=== PATIENT | male | born 1950 | race Caucasian/White ===

== ENCOUNTER 2020-03-23 20:30 | Inpatient (IN) | payer MEDICARE ==
--- NOTE | 2020-03-23 20:39 | ERPHSYRPT ---
- History of Present Illness Time Seen by Provider: 03/23/20 20:39 Source: patient Exam Limitations: no limitations Physician History: This is a 69-year-old diabetic white male who is right-handed and [place] the [place] in [place] 2 days ago. He fell hitting his left ribs as well as his left arm. The patient presents with bruising and swelling swelling of the left upper extremity from the left humerus down to his wrist on the left hand. It appeared as though the major injury was in the area of the dorsal aspect of his left elbow. It hurts to flex and extend at the elbow. Patient denies head injury. Patient has not had any fever. There is blistering that was present and the blistering worsened today and patient became concerned. Occurred: days ago Method of Injury: fell Severity of Pain-Max: moderate Severity of Pain-Current: moderate Extremities Pain Location: arm: left, elbow: left, forearm: left, wrist: left Modifying Factors: Improves With: movement Associated Symptoms: chest discomfort (Left ribs), No chills, No chest pain, No fever, No short of breath Allergies/Adverse Reactions: No Known Drug Allergies Allergy (Verified 03/23/20 21:21) Travel Risk - International Travel Have you traveled outside of the country in past 3 weeks: No - Coronavirus Screening Are you exhibiting any of the following symptoms?: No Close contact with a COVID-19 positive Pt in past 14-21 Days: No - Review of Systems Constitutional: No Symptoms Eyes: No Symptoms Ears, Nose, & Throat: No Symptoms Respiratory: No Symptoms Cardiac: No Symptoms Abdominal/Gastrointestinal: No Symptoms Genitourinary Symptoms: No Symptoms Musculoskeletal: Fall, Injury (Left humerus left elbow left forearm), Other (Oozing and swelling with blistering present) Skin: Other (See above) Neurological: No Symptoms Psychological: No Symptoms Endocrine: No Symptoms Hematologic/Lymphatic: No Symptoms Immunological/Allergic: No Symptoms All Other Systems: Reviewed and Negative - Past Medical History Pertinent Past Medical History: Yes Neurological History: No Pertinent History ENT History: No Pertinent History Cardiac History: No Pertinent History Respiratory History: No Pertinent History Endocrine Medical History: Diabetes Type II Musculoskeletal History: No Pertinent History GI Medical History: No Pertinent History History: No Pertinent History Psycho-Social History: No Pertinent History Male Reproductive Disorders: No Pertinent History - Past Surgical History Neuro Surgical History: No Pertinent History Cardiac: No Pertinent History Respiratory: No Pertinent History Gastrointestinal: No Pertinent History Genitourinary: No Pertinent History Musculoskeletal: No Pertinent History Male Surgical History: No Pertinent History - Nursing Vital Signs Nursing Vital Signs: Initial Vital Signs Temperature 98.5 F 03/23/20 20:55 Pulse Rate 96 H 03/23/20 20:55 Respiratory Rate 18 03/23/20 20:55 Blood Pressure 115/78 03/23/20 20:55 O2 Sat by Pulse Oximetry 97 03/23/20 20:55 Pain Scale Pain Intensity 6 - Physical Exam General Appearance: no apparent distress, alert, anxiety Eyes, Ears, Nose, Throat Exam: normal ENT inspection, moist mucous membranes Neck Exam: normal inspection, non-tender, supple, full range of motion Cardiovascular/Respiratory Exam: normal breath sounds, regular rate/rhythm, heart sounds normal, no respiratory distress, rib tenderness (Left side), No subcutaneous emphysema Abdominal Exam: non-tender, soft, no organomegaly, No guarding, No tenderness Back Exam: normal inspection, normal range of motion, No CVA tenderness, No vertebral tenderness Shoulder Exam: normal inspection, non-tender, no evidence of injury, normal ROM Elbow/Forearm Exam: bone tenderness, ecchymosis, limited ROM, soft tissue tenderness, swelling Wrist Exam: no evidence of injury, normal ROM, soft tissue tenderness, swelling Hand Exam: non-tender, no evidence of injury, normal ROM, soft tissue tenderness, swelling Neuro/Tendon Exam: normal sensation, normal motor functions, normal tendon functions, responds to pain Mental Status Exam: alert, oriented x 3, cooperative Skin Exam: abrasion, ecchymosis, other (Blistering at site of what appears to be an abrasion.) SpO2 Interpretation: normal O2 Delivery: Room Air Procedures - Incision and Drainage Site: Left lateral distal humerus level Anesthesia: 1% Lidocaine cc's of anesthesia: other (7) Blade Size: 10 I & D Procedure: betadine prep, culture obtained, irrigated with normal saline Results: small amount pus Progress: Procedure note: Timeout was performed. The area was prepped with Betadine solution. 7 mL of 1% lidocaine plain was used to anesthetize the skin and subcutaneous tissue layer. The #10 blade was used to make an incision in the line of the lidocaine injection. Patient tolerated this procedure well. Approximately 4-1/2 cm incision was made over the ballotable area. A large amount of old hematoma was expressed out. There is no foreign body present. There was oozing from the subcutaneous tissue layer. We packed the wound with approximately 1/2-3/4 of a Curlex wrap gauze. We then placed overlying this 4 x 4 gauze, the remainder of the Curlex wrap followed by 4 x 4 gauze then to Bean wraps. The patient had a strong palpable and dopplerable left radial pulse after this was performed. The patient was able to move his fingers. The patient told procedure well. A culture was taken of the fluid that was removed and sent to microbiology for evaluation. - Course Nursing assessment & vital signs reviewed: Yes Ordered Tests: Active Orders 24 hr Category Date Time Status IV Insertion STAT Care 03/23/20 21:06 Active RIBS UNILATERAL Stat Exams 03/23/20 21:09 Taken UPPER EXTREMITY W/O CONTRAST [CT] Stat Exams 03/23/20 00:25 Taken UPPER EXTREMITY W/O CONTRAST [CT] Stat Exams 03/23/20 21:08 Taken BLOOD CULTURE Stat Lab 03/23/20 21:25 Received CBC W DIFF Stat Lab 03/23/20 21:20 Completed CMP Stat Lab 03/23/20 21:20 Completed CULTURE,WOUND Stat Lab 03/23/20 21:20 Received Lactic Acid Stat Lab 03/23/20 21:55 Completed Lactic Acid Stat Lab 03/24/20 00:03 Completed Transfer Order Routine Transfer 03/24/20 Ordered Medication Summary Discontinued Medications Generic Name Dose Route Start Last Admin Trade Name Freq PRN Reason Stop Dose Admin Diphtheria/Tetanus/Acell Pertussis 0.5 ml 03/23/20 22:33 03/23/20 22:42 Adacel Vial IM 03/23/20 22:34 0.5 ml .ONCE ONE Administration Diphtheria/Tetanus/Acell Pertussis Confirm 03/23/20 22:40 Adacel Vial Administered 03/23/20 22:41 Dose 0.5 ml IM .STK-MED ONE Hydrogen Peroxide Confirm 03/23/20 20:59 Peroxide 3% Administered 03/23/20 21:00 Dose 237 ml .ROUTE .STK-MED ONE Hydromorphone HCl 1 mg 03/23/20 23:48 03/24/20 01:16 Hydromorphone 1 Mg/Ml Ampule IV 03/23/20 23:49 1 mg STAT ONE Administration Hydromorphone HCl Confirm 03/24/20 01:08 Hydromorphone 1 Mg/Ml Ampule Administered 03/24/20 01:09 Dose 1 mg .ROUTE .STK-MED ONE Sodium Chloride 1,000 mls @ 999 mls/hr 03/23/20 21:06 03/23/20 22:48 Sodium Chloride 0.9% 1000 Ml IV 03/23/20 22:06 Infused .Q1H1M STA Infusion Sodium Chloride Confirm 03/23/20 21:30 Sodium Chloride 0.9% 1000 Ml Administered 03/23/20 21:31 Dose 1,000 mls @ ud .ROUTE .STK-MED ONE Meropenem 1 g/ Sodium Chloride 100 mls @ 200 mls/hr 03/23/20 23:47 03/24/20 01:16 IV 03/24/20 00:16 200 mls/hr STAT ONE Administration Sodium Chloride 1,000 mls @ 999 mls/hr 03/23/20 23:48 03/24/20 01:15 Sodium Chloride 0.9% 1000 Ml IV 03/24/20 00:48 999 mls/hr .Q1H1M STA Administration Sodium Chloride Confirm 03/24/20 01:08 Sodium Chloride 100ml Mini-Bag Plus Administered 03/24/20 01:09 Dose 100 mls @ ud IV .STK-MED ONE Sodium Chloride Confirm 03/24/20 01:08 Sodium Chloride 0.9% 1000 Ml Administered 03/24/20 01:09 Dose 1,000 mls @ ud .ROUTE .STK-MED ONE Lidocaine HCl Confirm 03/24/20 00:15 Xylocaine 1% Hcl 20 Ml Mdv Administered 03/24/20 00:16 Dose 1 ml .ROUTE .STK-MED ONE Meropenem Confirm 03/24/20 01:08 Merrem 1 Gm Administered 03/24/20 01:09 Dose 1 g IV .STK-MED ONE Ondansetron HCl 4 mg 03/23/20 23:48 03/24/20 01:16 Zofran 4 Mg/2 Ml Vial IV 03/23/20 23:49 4 mg STAT ONE Administration Ondansetron HCl Confirm 03/24/20 01:08 Zofran 4 Mg/2 Ml Vial Administered 03/24/20 01:09 Dose 4 mg .ROUTE .STK-MED ONE Lab/Rad Data: Laboratory Result Diagrams 03/23/20 21:20 03/23/20 21:20 Laboratory Results 03/24/20 03/23/20 03/23/20 Range/Units 00:03 21:55 21:20 WBC (4.0-10.5) K/mm3 RBC (4.1-5.6) M/mm3 Hgb (12.5-18.0) gm/dl Hct (42-50) % MCV (78-100) fl MCH (26-32) pg MCHC (32-36) g/dl RDW (11.5-14.0) % Plt Count (150-450) K/mm3 MPV (7.5-11.0) fl Gran % (36.0-66.0) % Eos # (Auto) (0-0.5) Absolute Lymphs (auto) (1.0-4.6) Absolute Monos (auto) (0.0-1.3) Lymphocytes % (24.0-44.0) % Monocytes % (0.0-12.0) % Eosinophils % (0.00-5.0) % Basophils % (0.0-0.4) % Absolute Granulocytes (1.4-6.9) Basophils # (0-0.4) Sodium 126 L (137-145) mmol/L Potassium 4.2 (3.5-5.1) mmol/L Chloride 88 L (98-107) mmol/L Carbon Dioxide 25 (22-30) mmol/L Anion Gap 17.5 H (5-15) MEQ/L BUN 24 H (9-20) mg/dL Creatinine 0.77 (0.66-1.25) mg/dL Estimated GFR > 60.0 ML/MIN Glucose 201 H (74-106) mg/dL Lactic Acid 2.4 H 2.8 H (0.4-2.0) Calcium 9.2 (8.4-10.2) mg/dL Total Bilirubin 1.60 H (0.2-1.3) mg/dL AST 80 H (17-59) U/L ALT 32 (0-50) U/L Alkaline Phosphatase 93 (38-126) U/L Serum Total Protein 7.8 (6.3-8.2) g/dL Albumin 4.4 (3.5-5.0) g/dL 03/23/20 Range/Units 21:20 WBC 7.8 (4.0-10.5) K/mm3 RBC 3.58 L (4.1-5.6) M/mm3 Hgb 12.2 L (12.5-18.0) gm/dl Hct 34.8 L (42-50) % MCV 97.2 (78-100) fl MCH 34.1 H (26-32) pg MCHC 35.1 (32-36) g/dl RDW 12.9 (11.5-14.0) % Plt Count 114 L (150-450) K/mm3 MPV 10.0 (7.5-11.0) fl Gran % 55.8 (36.0-66.0) % Eos # (Auto) 0.18 (0-0.5) Absolute Lymphs (auto) 2.05 (1.0-4.6) Absolute Monos (auto) 1.13 (0.0-1.3) Lymphocytes % 26.4 (24.0-44.0) % Monocytes % 14.6 H (0.0-12.0) % Eosinophils % 2.3 (0.00-5.0) % Basophils % 0.9 (0.0-0.4) % Absolute Granulocytes 4.33 (1.4-6.9) Basophils # 0.07 (0-0.4) Sodium (137-145) mmol/L Potassium (3.5-5.1) mmol/L Chloride (98-107) mmol/L Carbon Dioxide (22-30) mmol/L Anion Gap (5-15) MEQ/L BUN (9-20) mg/dL Creatinine (0.66-1.25) mg/dL Estimated GFR ML/MIN Glucose (74-106) mg/dL Lactic Acid (0.4-2.0) Calcium (8.4-10.2) mg/dL Total Bilirubin (0.2-1.3) mg/dL AST (17-59) U/L ALT (0-50) U/L Alkaline Phosphatase (38-126) U/L Serum Total Protein (6.3-8.2) g/dL Albumin (3.5-5.0) g/dL - Progress Progress: improved, pain not gone completely, re-examined Progress Note: 03/24/20 00:06 The left upper extremity CAT scan reveals no bony fractures or dislocations. There is a 7 to 8 cm hyperdense collection of material in the subcutaneous fat along the distal lateral aspect of the humerus. This may reflect infectious process such as a phlegmon or abscess without bony abnormality 03/24/20 00:50 X-ray of left ribs reveals no evidence of any acute fracture of ribs. 03/24/20 00:51 Medical decision making: This patient does not have a left upper extremity fracture or dislocation. It appears well there is possible abscess present in the lateral aspect of the distal humerus. I performed an incision and drainage after obtaining consent from the patient. We made incision overlying the ballotable area. We took over another culture of this fluid that appeared more of a hematoma than pus. We did express a large amount of old blood. There was no odor present. There was significant amount of oozing of blood present and therefore we placed approximately 1/2-3/4 of a Curlex into the subcutaneous space followed by 4 x 4 gauze and another Kerlix wrap overlying this. We then placed more 4 x 4's overlying this and two Bean wraps to hold pressure. The patient is hemodynamically stable and his hemoglobin was 12.2. He is not on any blood thinning medication. I think the patient would be best served at this point to come into the hospital and given IV hydration, IV antibiotics, pain control, n.p.o. status and have a general surgical consultation this morning to evaluate the wound. The patient might need evaluation in the operating room suite. I will discuss this with Dr. Morales. 03/24/20 01:10 I discussed these issues with Dr. Morales at approximately 01 100 this morning. She accepts the patient for admission. We will consult Dr. Edil Salazar in the morning for evaluation of the site. We will continue the order for IV hydrat ion, repeat labs and have available intravenous pain medication. We will keep the patient n.p.o. and give the patient antibiotics. Discussed with : Holli Counseled pt/family regarding: lab results, diagnosis, rad results - Departure Departure Disposition: In-patient Admission Clinical Impression: Fall with injury, Hematoma, Cellulitis Condition: Stable Critical Care Time: No Referrals: EUGENIO HERRERA Jr., MD [Primary Care Provider] -
[2020-03-23] MEDS ORDERED: PEROXIDE 3% ONE (20:59)
[2020-03-23] MEDS ORDERED: Sodium Chloride 0.9% 1000 ML 1,000 ML IV STA ×2 (21:06→23:48)
[2020-03-23] MEDS ORDERED: Sodium Chloride 0.9% 1000 ML 1,000 ML ONE (21:30)
[2020-03-23 21:35] LABS: Absolute Neutrophil Ct (ANC) 4.33 (1.4-6.9); BASOPHIL % 0.9 % (0.0-0.4); Basophil (Absolute #) 0.07 (0-0.4); Eosinophil % 2.3 % (0.00-5.0); Eosinophil (Absolute #) 0.18 (0-0.5); Hematocrit 34.8 % (42-50); Hemoglobin 12.2 gm/dl (12.5-18.0); Lymphocyte (Absolute #) 2.05 (1.0-4.6); Lymphocytes % 26.4 % (24.0-44.0); Mean Cell Volume 97.2 fl (78-100); Mean Corpuscular Hemoglobin 34.1 pg (26-32); Mean Corpuscular Hgb Concent. 35.1 g/dl (32-36); Monocyte (Absolute #) 1.13 (0.0-1.3); Monocytes % 14.6 % (0.0-12.0); Neutrophil % 55.8 % (36.0-66.0); Platelet Count 114 K/mm3 (150-450); Red Blood Count 3.58 M/mm3 (4.1-5.6); Red Cell Distribution Width 12.9 % (11.5-14.0); White Blood Count 7.8 K/mm3 (4.0-10.5)
[2020-03-23 21:46] LABS: ALBUMIN 4.4 g/dL (3.5-5.0); ALKALINE PHOSPHATASE 93 U/L (38-126); ANION GAP 17.5 MEQ/L (5-15); BLOOD UREA NITROGEN 24 mg/dL (9-20); CHLORIDE 88 mmol/L (98-107); Calcium 9.2 mg/dL (8.4-10.2); Carbon Dioxide 25 mmol/L (22-30); Creatinine 1 0.77 mg/dL (0.66-1.25); Glucose 201 mg/dL (74-106); Potassium 4.2 mmol/L (3.5-5.1); SGOT/AST 80 U/L (17-59); SGPT/ALT 32 U/L (0-50); SODIUM 126 mmol/L (137-145); Total Protein 7.8 g/dL (6.3-8.2)
[2020-03-23] MEDS ORDERED: Adacel Vial IM ONE ×2 (22:33→22:40)
[2020-03-23] MEDS ORDERED: Merrem 1 GM 1 G in Sodium Chloride 100ML MINI-BAG PLUS 100 ML IV ONE (23:47)
[2020-03-23] MEDS ORDERED: Zofran 4 MG/2 ML VIAL IV ONE (23:48)
[2020-03-23] MEDS ORDERED: Hydromorphone 1 mg/ml Ampule IV ONE (23:48)
[2020-03-24] MEDS ORDERED: XYLOCAINE 1% HCL 20 ML MDV ONE (00:15)
[2020-03-24] MEDS ORDERED: Zofran 4 MG/2 ML VIAL ONE (01:08)
[2020-03-24] MEDS ORDERED: Hydromorphone 1 mg/ml Ampule ONE (01:08)
[2020-03-24] MEDS ORDERED: Sodium Chloride 100ML MINI-BAG PLUS 100 ML IV ONE (01:08)
[2020-03-24] MEDS ORDERED: Sodium Chloride 0.9% 1000 ML 1,000 ML ONE ×2 (01:08→19:14)
[2020-03-24] MEDS ORDERED: Merrem 1 GM IV ONE (01:08)
[2020-03-24] MEDS ORDERED: Zofran 4 MG/2 ML VIAL IV PRN (03:14)
[2020-03-24] MEDS ORDERED: DILAUDID 2 MG INJECTION IV PRN (03:14)
[2020-03-24 03:56] LABS: ALBUMIN 3.9 g/dL (3.5-5.0); ALKALINE PHOSPHATASE 82 U/L (38-126); Absolute Neutrophil Ct (ANC) 4.34 (1.4-6.9); BASOPHIL % 0.8 % (0.0-0.4); BLOOD UREA NITROGEN 17 mg/dL (9-20); Basophil (Absolute #) 0.05 (0-0.4); CHLORIDE 94 mmol/L (98-107); Calcium 8.4 mg/dL (8.4-10.2); Carbon Dioxide 23 mmol/L (22-30); Eosinophil % 1.1 % (0.00-5.0); Eosinophil (Absolute #) 0.07 (0-0.5); Glucose 120 mg/dL (74-106); Hemoglobin 11.3 gm/dl (12.5-18.0); Lymphocyte (Absolute #) 1.14 (1.0-4.6); Lymphocytes % 17.4 % (24.0-44.0); Mean Cell Volume 97.3 fl (78-100); Mean Corpuscular Hemoglobin 34.3 pg (26-32); Mean Corpuscular Hgb Concent. 35.3 g/dl (32-36); Mean Platelet Volume 9.9 fl (7.5-11.0); Monocyte (Absolute #) 0.94 (0.0-1.3); Monocytes % 14.4 % (0.0-12.0); Neutrophil % 66.3 % (36.0-66.0); Platelet Count 107 K/mm3 (150-450); Potassium 3.6 mmol/L (3.5-5.1); Red Blood Count 3.29 M/mm3 (4.1-5.6); Red Cell Distribution Width 12.6 % (11.5-14.0); SGOT/AST 61 U/L (17-59); SGPT/ALT 27 U/L (0-50); SODIUM 128 mmol/L (137-145); Total Protein 6.8 g/dL (6.3-8.2); White Blood Count 6.5 K/mm3 (4.0-10.5)
[2020-03-24 04:15] LABS: INR 1.25 (0.8-3.0); PROTIME 14.1 SECONDS (8.83-12.87)
--- NOTE | 2020-03-24 07:47 | XRAY ---
Indication: Left lower rib pain following fall 2 days ago. Comparison: None 2 view left ribs demonstrates old 6 rib fracture, mild multilevel degenerative spondylosis, mild acromioclavicular degenerative changes, and mild scattered vascular calcifications. No other bony, articular, or soft tissue abnormalities. Comment: Preliminary interpretation was made by [facility]. No critical discrepancy.
--- NOTE | 2020-03-24 07:57 | XRAY ---
Indication: Pain, bruising, and hematoma following fall 2 days ago. Multiple contiguous axial images obtained through the left humerus without contrast as ordered. Sagittal and coronal reformatted images obtained. Comparison: None There is a subcutaneous slightly hyperdense noncalcified mass in the distal arm anteriorly laterally measuring 4.0 x 7.5 x 3.6 cm. Finding presumed post rheumatic hematoma given clinical history. Inflammatory/infectious fluid collection not completely excluded. No acute fracture, dislocation, or osseous destructive process. Humeral head demonstrates small subcortical cysts posterior laterally. Mild acromioclavicular degenerative arthropathy. Old lateral 6 rib fracture. No pathologic axillary lymphadenopathy. Minimal axillary artery calcifications. Remaining visualized noncontrasted soft tissues including visualized left lung unremarkable. CT forearm reported separately. Impression: 1. Distal arm subcutaneous mass as detailed presumed posttraumatic hematoma. Inflammatory/infectious fluid collection not completely excluded in the right clinical setting. 2. Incidental old left 6 rib fracture, mild AC degenerative arthropathy, and humeral head subcortical cysts. Comment: Preliminary interpretation was made by [facility]. No critical discrepancy.
--- NOTE | 2020-03-24 08:05 | XRAY ---
Indication: Pain, bruising, and hematoma following fall 2 days ago. Multiple contiguous axial images obtained through the left left forearm without contrast as ordered. Sagittal and coronal reformatted images obtained. Comparison: None CT humerus reported separately. Entire posterior forearm demonstrates diffuse cutaneous/subcutaneous soft tissue induration presumed posttraumatic given clinical history. Inflammatory/infectious process not completely excluded. No focal walled off fluid collection or subcutaneous emphysema. Remaining visualized noncontrasted soft tissues unremarkable. No acute fracture, dislocation, suspicious bony lesions, or osseous destructive process. Visualized carpal bones demonstrates tiny scaphoid, trapezium, and trapezoid subcortical cysts. Mild degenerative changes seen of the first metacarpal, trapezium, scaphoid articulation. Lunate demonstrates tiny bone island. Impression: 1. Diffuse posterior forearm cutaneous/subcutaneous soft tissue induration presumed posttraumatic. Inflammatory/infectious process not completely excluded in the right clinical setting. 2. Incidental wrist degenerative changes. Comment: Preliminary interpretation was made by [facility]. No critical discrepancy.
[2020-03-24] MEDS: Sodium Chloride 0.9% 1000 ML 1,000 ML IV SCH (08:25)
[2020-03-24] MEDS: MERREM 500MG 500 MG in Sodium Chloride 100ML MINI-BAG PLUS 100 ML IV SCH ×2 (10:50→20:09)
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
[2020-03-24] MEDS: Toprol Xl 50 MG PO SCH (14:49)
[2020-03-24] MEDS: Zestril 10 MG PO SCH (14:49)
[2020-03-24] MEDS ORDERED: Lactated Ringers 1,000 ML IV SCH (16:30)
[2020-03-24] MEDS ORDERED: Versed 2 MG/2 ML Injection ONE (17:24)
[2020-03-24] MEDS ORDERED: SUBLIMAZE 250 MCG/5 ML ONE (17:24)
[2020-03-24] MEDS ORDERED: DIPRIVAN 200 MG/20 ML IV ONE (17:24)
[2020-03-24] MEDS ORDERED: PHENYLEPHRINE HCL ONE (18:15)
[2020-03-24] MEDS ORDERED: KEFZOL 1 GM ONE (18:16)
[2020-03-24] MEDS ORDERED: SUBLIMAZE 100 MCG/2 ML ONE (18:39)
[2020-03-24 21:24] LABS: Hematocrit 29.7 % (42-50); Hemoglobin 10.2 gm/dl (12.5-18.0)
[2020-03-24] MEDS ORDERED: NORCO 5/325 MG PO PRN (21:45)
[2020-03-24] MEDS: HUMULIN R SQ PRN (22:04)
[2020-03-25] MEDS: Sodium Chloride 0.9% 1000 ML 1,000 ML IV SCH ×2 (02:32→23:22)
[2020-03-25] MEDS: MERREM 500MG 500 MG in Sodium Chloride 100ML MINI-BAG PLUS 100 ML IV SCH ×3 (03:10→18:24)
[2020-03-25 06:11] LABS: Hematocrit 23.2 % (42-50); Mean Cell Volume 103.1 fl (78-100); Mean Corpuscular Hemoglobin 34.7 pg (26-32); Mean Corpuscular Hgb Concent. 33.6 g/dl (32-36); Mean Platelet Volume 10.3 fl (7.5-11.0); Platelet Count 79 K/mm3 (150-450); Red Blood Count 2.25 M/mm3 (4.1-5.6); Red Cell Distribution Width 13.2 % (11.5-14.0)
[2020-03-25 07:15] LABS: Hemoglobin 7.8 gm/dl (12.5-18.0)
[2020-03-25 07:17] LABS: Slide Review YES
[2020-03-25] MEDS: Toprol Xl 50 MG PO SCH (10:12)
[2020-03-25] MEDS: Zestril 10 MG PO SCH (10:13)
[2020-03-25] MEDS: HUMULIN R SQ PRN (12:31)
[2020-03-25] MEDS ORDERED: Colace 100 MG PO PRN (13:07)
--- NOTE | 2020-03-25 13:07 | PCM.NOTE ---
Date and Time: 03/25/20 1303 Subjective Assessment: Pt had his dressing changed yesterday and arterial bleeding was present; RNs held pressure x 45 min and pt was taken to surgery for vessel ligation with Dr. Edil Salazar, thank you. Hgb was 7.8 this morning. If his next dressing change is uneventful, will recheck hgb in the morning and plan to d/c tomorrow. - Review of Systems Constitutional: No Fever Abdominal/Gastrointestinal: No Vomiting Objective Exam General Appearance: no apparent distress, alert Neurologic Exam: oriented x 3, cooperative Skin Exam: normal color, warm, dry, No rash Wound Assessment: Skin/Wound Assessment Wound/Incision Assessment Start: 03/24/20 04:10 Text: Status: Active Freq: Q6H Protocol: Document 03/25/20 08:00 [facility] (Rec: 03/25/20 08:44 [facility] [id number]) Wound/Incision Assessment Left Upper Arm Wound Assessment Shift Assessment Wound Type Incision Wound Stage Non Pressure Wound Dressing Status Dry & Intact Drainage Amount None General Appearance Clean/Dry Comment Surgery dressing remains CDI. remains true Wound Photo Photo Taken No Ears, Nose, Throat Exam: moist mucous membranes Neck Exam: normal inspection Respiratory Exam: normal breath sounds, lungs clear, No crackles/rales, No rhonchi, No wheezing Cardiovascular Exam: regular rate/rhythm, normal heart sounds, No murmur Extremity Exam: other (LUE with hand edema 1+, nttp. elbow is wrapped.) OBJECTIVE DATA Vital Signs: Vital Signs - 24 hr Temp Pulse Resp BP Pulse Ox 03/25/20 11:31 98.8 F 87 18 118/63 94 L 03/25/20 07:39 98.8 F 76 17 108/50 90 L 03/25/20 03:46 98.9 F 74 20 102/55 94 L 03/24/20 23:10 98.9 F 84 18 106/68 93 L 03/24/20 22:10 98.0 F 71 16 94/52 94 L 03/24/20 21:10 98.0 F 92 H 22 99/56 95 03/24/20 20:40 97.9 F 84 18 94/50 92 L 03/24/20 20:10 97.4 F 84 16 96/52 91 L 03/24/20 19:55 97.9 F 79 18 120/57 91 L 03/24/20 16:09 97.9 F 81 18 144/65 96 Pain Assessment - Last Documented Pain Intensity 5 Pain Scale Used 0-10 Pain Scale Intake and Output: Intake & Output 03/23/20 03/24/20 03/25/20 03/26/20 11:59 11:59 11:59 11:59 Intake Total 0 1454 Output Total 400 Balance 0 1054 Weight 90 kg 87.5 kg Lab Results: Accuchecks Accucheck Value: 122 Accucheck Value: 239 Lab Results-Last 24 Hours 03/24/20 03/25/20 Range/Units 21:20 05:15 WBC 5.0 (4.0-10.5) K/mm3 RBC 2.25 L (4.1-5.6) M/mm3 Hgb 10.2 L 7.8 L D (12.5-18.0) gm/dl Hct 29.7 L 23.2 L (42-50) % MCV 103.1 H (78-100) fl MCH 34.7 H (26-32) pg MCHC 33.6 (32-36) g/dl RDW 13.2 (11.5-14.0) % Plt Count 79 L (150-450) K/mm3 MPV 10.3 (7.5-11.0) fl Slides for Path Review YES Radiology Exams: Radiology Procedures Category Date Time Status RIBS UNILATERAL Stat Exams 03/23/20 21:09 Completed UPPER EXTREMITY W/O CONTRAST [CT] Stat Exams 03/23/20 21:08 Completed Multi-Disciplinary Progress Notes: Multi-Disciplinary Progress Notes 03/24/20 22:51 Case Management Note by Keysha Bonilla DISCHARGE PLAN REVIEWED. PRIMARY NURSE SPOKE WITH PATIENT AND LAY CAREGIVER. PT NORMALLY INDEPENDENT OF ALL ADL'S. PLAN TO RETURN HOME IN PRE EPISODIC CONDITION. DENIES NEED FOR ANY DME OR SERVICES AT THIS TIME. WILL CONTINUE TO MONITOR FOR ALL D/C NEEDS. Initialized on 03/24/20 22:51 - END OF NOTE Assessment/Plan (1) Hematoma Current Visit: Yes Status: Acute Assessment & Plan: S/p surgery for vessel ligation. If next dressing change goes well, can likely d/c home tomorrow. Code(s): T14.8XXA - OTHER INJURY OF UNSPECIFIED BODY REGION, INITIAL ENCOUNTER (2) Fall with injury Current Visit: Yes Status: Acute Qualifiers: Encounter type: initial encounter Qualified Code(s): W19.XXXA - Unspecified fall, initial encounter Code(s): W19.XXXA - UNSPECIFIED FALL, INITIAL ENCOUNTER (3) Cellulitis Current Visit: Yes Status: Acute Qualifiers: Site of cellulitis: extremity Site of cellulitis of extremity: upper extremity Laterality: left Qualified Code(s): L03.114 - Cellulitis of left upper limb Assessment & Plan: less likely, but treating with IV meropenem. Code(s): L03.90 - CELLULITIS, UNSPECIFIED (4) Anemia Current Visit: Yes Status: Acute Qualifiers: Anemia type: iron deficiency Iron deficiency anemia type: unspecified iron deficiency Qualified Code(s): D50.9 - Iron deficiency anemia, unspecified Assessment & Plan: from acute blood loss. Start po iron. Would like to avoid blood transfusion; if Hgb stable in the a.m. would send pt home on Fe BID. Code(s): D64.9 - ANEMIA, UNSPECIFIED
[2020-03-25] MEDS: FEOSOL 325 MG PO SCH ×2 (14:35→21:44)
[2020-03-26] MEDS: MERREM 500MG 500 MG in Sodium Chloride 100ML MINI-BAG PLUS 100 ML IV SCH (01:49)
[2020-03-26 05:02] LABS: Hematocrit 30.1 % (42-50); Mean Cell Volume 102.4 fl (78-100); Mean Corpuscular Hemoglobin 33.7 pg (26-32); Mean Corpuscular Hgb Concent. 32.9 g/dl (32-36); Mean Platelet Volume 10.2 fl (7.5-11.0); Platelet Count 90 K/mm3 (150-450); Red Blood Count 2.94 M/mm3 (4.1-5.6); Red Cell Distribution Width 13.4 % (11.5-14.0); White Blood Count 5.1 K/mm3 (4.0-10.5)
[2020-03-26 05:10] LABS: Hemoglobin 9.9 gm/dl (12.5-18.0)
--- NOTE | 2020-03-26 08:16 | CONS ---
CONSULT DATE: 03/24/2020 HISTORY: This patient is a 69 year old male who presents initially he had a fall on Thursday and developed a large hematoma on his left arm. He went to the emergency department last night and had the hematoma explored in the emergency department which per the patient there was significant blood evacuated and a pressure dressing placed to control bleeding. He denies any chest pain, shortness of breath, fevers or chills. He denies any numbness or tingling in his hand or any weakness in his hand. He denies any injury anywhere else. PHYSICAL EXAMINATION: GENERAL: No acute distress. HEENT: Sclera nonicteric. Extraocular movements intact. NECK: Supple. No JVD. CHEST: Nonlabored breathing. ABDOMEN: Soft, nontender. EXTREMITIES: The left arm wound dressing was removed at bedside. There is a 5 cm wound just distal to the left elbow laterally in the region of the cephalic vein. The packing was removed and there was a deep wound and there was significant active hemorrhage coming from a vessel in the base of the wound. It seemed to probably be a large vein probably the cephalic vein or a deep vein. It is not really in the location of the radial/ulnar arteries. Hemorrhaging was controlled with direct pressure fairly well. He has a good radial pulse. He had sensation on movement of his left hand. NEURO: Awake, alert, oriented. PSYCH: Appropriate mood and affect. ASSESSMENT: Traumatic left arm injury with active hemorrhage. PLAN: Plan for immediate operative exploration and control of hemorrhage when OR is available. Risks and benefits of surgery discussed in depth with the patient including risk of nerve injury or other complications. The patient elected to proceed with the surgery.
--- NOTE | 2020-03-26 09:26 | PCM.DS ---
Discharge Summary Date of Admission: 03/24/20 03:07 Admitting Physician: AMI MTZ Consults: Consults on Case 03/24/20 08:25 Consult Surgery ROUTINE Primary Care Provider: EUGENIO HERRERA Allergies Allergies No Known Drug Allergies Allergy (Verified 03/23/20 21:21) Hospital Summary - Hospital Course Hospital Course: Pt is 69 yo male with HTN, PCP in [place], who fell 2 days prior to admission and was found to have a large hematoma on his LUE. During a dressing change he was found to have an arterial bleed and was taken to surgery for I&D and vessel ligation by DR. Hernan Salazar. His Hgb dropped from 10.5 to 7.8 but he was asymptomatic. Today his hgb is 9.9. Dressing change yesterday without incident. Does have AILEEN drain. Has been receiving IV antibiotics for question of cellulitis at admission. Will send pt home with small amount of pain meds, antibiotics for the next 1 week. Pt to go to PT for dressing changes. F/u with a provider at [facility] or [facility] in 1 week. - Vitals & Intake/Output Vital Signs: Vital Signs Temperature 98.5 F 03/26/20 07:23 Pulse Rate 80 03/26/20 07:23 Respiratory Rate 18 03/26/20 07:23 Blood Pressure 138/63 03/26/20 07:23 O2 Sat by Pulse Oximetry 93 L 03/26/20 07:23 Intake & Output: Intake & Output 03/23/20 03/24/20 03/25/20 03/26/20 11:59 11:59 11:59 11:59 Intake Total 0 1454 3223 Output Total 400 Balance 0 1054 3223 Weight 90 kg 87.5 kg - Lab Result Diagrams: 03/26/20 04:35 03/24/20 03:35 Lab Results-Last 24 Hrs: Accuchecks Accucheck Value: 143 Accucheck Value: 126 Accucheck Value: 118 Accucheck Value: 249 Lab Results-Last 24 Hours 03/26/20 Range/Units 04:35 WBC 5.1 (4.0-10.5) K/mm3 RBC 2.94 L (4.1-5.6) M/mm3 Hgb 9.9 L D (12.5-18.0) gm/dl Hct 30.1 L (42-50) % MCV 102.4 H (78-100) fl MCH 33.7 H (26-32) pg MCHC 32.9 (32-36) g/dl RDW 13.4 (11.5-14.0) % Plt Count 90 L (150-450) K/mm3 MPV 10.2 (7.5-11.0) fl Micro Results-Entire Visit: Microbiology 03/23/20 21:20 Wound Culture - Preliminary Arm - Left Lower ORGANISMS ISOLATED ARE CONSISTENT WITH NORMAL SKIN CHESTER LIGHT GROWTH, NO PREDOMINANT ORGANISM 03/23/20 21:25 Blood Culture - Preliminary Blood NO GROWTH TO DATE 03/23/20 21:20 Blood Culture - Preliminary Blood NO GROWTH TO DATE Accuchecks Accucheck Value: 143 Accucheck Value: 126 Accucheck Value: 118 Accucheck Value: 249 - Procedures and Test Procedures and Tests throughout Hospitalization: Therapy Orders & Screens 03/24/20 04:09 OT Screen per Nursing Assess ONCE Comment: Protocol Order Physician Instructions: Greater than 3 points order OT Admission Screening Reason For Exam: Triggered on Admission Diagnosis: Left upper extremity hematoma Open Wound/Cellutlitis/Pressure Ulcers: Yes Acute Fx/ORIF/Change in wt bearing status: No Severe MUSCULOSKELETAL pain: No ADL Dysfunction: No Acute CVA w/Hemiparesis/Hemiplegia: No Decreased Functional Mobility/Strength: No Sprain/Strain: No Acute Post-op Mobility Dysfunction: No Total Points: 5 PT Screen per Nursing Assess ONCE Comment: Protocol Order Physician Instructions: Greater than 3 points order PT Admission Screenin Reason For Exam: Triggered on Admission Diagnosis: Left upper extremity hematoma Open Wound/Cellutlitis/Pressure Ulcers: Yes Acute Fx/ORIF/Change in wt bearing status: No Severe MUSCULOSKELETAL pain: No ADL Dysfunction: No Acute CVA w/Hemiparesis/Hemiplegia: No Decreased Functional Mobility/Strength: No Sprain/Strain: No Acute Post-op Mobility Dysfunction: No Total Points: 5 Discharge Exam General Appearance: no apparent distress, alert Neurologic Exam: oriented x 3, cooperative Eye Exam: eyes nml inspection Ears, Nose, Throat Exam: moist mucous membranes Neck Exam: normal inspection Respiratory Exam: normal breath sounds, lungs clear, No crackles/rales, No rhonchi, No wheezing Cardiovascular Exam: regular rate/rhythm, normal heart sounds, No murmur Extremity Exam: swelling (L hand 1+ edema, no erythema, nttp. L elbow is wrapped.), No pedal edema Skin Exam: normal color, warm, dry, No rash Wound Assessment: Skin/Wound Assessment Wound/Incision Assessment Start: 03/24/20 04:10 Text: Status: Active Freq: Q6H Protocol: Document 03/26/20 02:00 [facility] (Rec: 03/26/20 04:56 MG [id number]) Wound/Incision Assessment Left Upper Arm Wound Assessment Shift Assessment Wound Type Incision Wound Stage Non Pressure Wound Dressing Status Dry & Intact Drainage Amount None General Appearance Clean/Dry Comment Dressing CDI. Final Diagnosis/Problem List - Final Discharge Diagnosis/Problem (1) Hematoma Current Visit: Yes Status: Resolved Assessment & Plan: with arterial bleed; I&D done with vessel ligation. Pt doing very well. Home to [facility] today if OK with surgery; f/u with them as directed. F/u with someone at [facility] or [facility] next week (I will be out). INSPECT appropriate today 03/26/20. Code(s): T14.8XXA - OTHER INJURY OF UNSPECIFIED BODY REGION, INITIAL ENCOUNTER (2) Fall with injury Current Visit: Yes Status: Acute Code(s): W19.XXXA - UNSPECIFIED FALL, INITIAL ENCOUNTER (3) Cellulitis Current Visit: Yes Status: Acute Assessment & Plan: home on keflex x 7d. Code(s): L03.90 - CELLULITIS, UNSPECIFIED (4) Anemia Current Visit: Yes Status: Acute Code(s): D64.9 - ANEMIA, UNSPECIFIED - Discharge Disposition: Home, Self-Care Condition: Stable Prescriptions: New Docusate Sodium 100 mg [Colace 100 MG] 100 mg PO DAILY PRN PRN capsule PRN Reason: Constipation Ferrous Sulfate 325 mg [Feosol 325 mg] 325 mg PO DAILY #30 tablet Cephalexin Mh 500 mg [Keflex 500 mg] 500 mg PO QID #28 capsule Hydrocodone/APAP 5-325 Tab^^^ [[place] 5-325 Tablet^^^] 1 each PO TID PRN #10 tablet MDD 3 PRN Reason: Severe Pain Continue Lisinopril 10 mg [Zestril 10 MG] 10 mg PO DAILY Atorvastatin Calcium [Lipitor] 10 mg PO DAILY Metoprolol Succinate 50 mg [Toprol Xl 50 MG] 50 mg PO DAILY Metformin HCl 500 mg [Glucophage 500 MG] 500 mg PO DAILY Triamterene/Hydrochlorothiazid [Triamterene-Hctz 37.5-25 mg Tb] 1 tab PO DAILY Additional Instructions: Eat yogurt or take probiotic daily while on antibiotics. Take the keflex until gone. Follow up with: EUGENIO HERRERA Jr., MD [Primary Care Provider] - 1 Week
[2020-03-26] MEDS: Toprol Xl 50 MG PO SCH (09:42)
[2020-03-26] MEDS: Zestril 10 MG PO SCH (09:42)
[2020-03-26] MEDS: FEOSOL 325 MG PO SCH (09:43)
--- NOTE | 2020-03-26 09:56 | OP ---
SURGERY DATE/TIME: 03/24/2020 1800 PREOPERATIVE DIAGNOSIS: Traumatic left arm wound with active hemorrhage. POSTOPERATIVE DIAGNOSIS: Traumatic left arm wound with active arterial hemorrhage. PROCEDURE: Left arm exploration with control of traumatic arterial hemorrhage. SURGEON: Edil Salazar M.D. ANESTHESIA: General. ESTIMATED BLOOD LOSS: 200 cc. 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 PATIENT PRESENTATION: This patient presents with an injury to his left arm on Thursday and developed a large hematoma. He went to the emergency department last night and had the hematoma evacuated in the emergency department. There was significant bleeding that required a pressure dressing for control. I was consulted today for wound care management. Upon unpacking the dressing there was pulsatile bleeding from the wound bed and pressure was held and the patient was recommended urgent surgical exploration. Risks and benefits of surgery discussed in depth with the patient including potential risk of nerve injury or other complications. The patient wished to proceed with surgery. DESCRIPTION OF PROCEDURE: The patient was brought to the OR and placed under general anesthesia. The outside pressure dressing was removed from the left arm. A tourniquet was placed on the upper left arm as high as possible. The deep packing was left in the wound. The arm was circumferentially prepped and draped and the packing was then removed and some further Betadine applied and there was hemorrhage from deep in the wound. A significant amount of hematoma was evacuated. [place] retractors were used to explore the wound. It was quite deep. It was just below the antecubital fossa out laterally and into the muscle. The wound was extended both proximally and distally a few centimeters. A Weitlaner was also inserted for retraction as well as the [place] and the arterial bleeding could be seen at the top of the wound. The cephalic vein was also transected and bleeding at just under the skin level and this was clipped with small metal clips. 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 The tourniquet was let back down to evaluate the bleeding. A 6-0 Prolene was initially used to repair the vessel but after placing the bleeding was less but still significant and this artery was then sacrificed with 3-0 Prolene stitch proximally and a silk tie was placed around it distally and it was tied off. The wound was very hemostatic after this. There were some raw muscle edges but no real significant bleeding. The wound was irrigated and suctioned dry. SURGICEL was placed on two places of raw surface and one placed directly over the artery that had been ligated. A quarter inch Martin was placed in the wound and sutured to the skin out the inferior aspect with 3-0 chromic suture. The wound was closed with interrupted 3-0 Prolene sutures. A dressing was applied. The patient had quite a bit of swelling in his left arm all the way down to his hand preoperatively. He was still neurovascularly intact preoperatively. At the completion of the case he had excellent radial and ulnar signals and arch signal. The hand was warm and pink. The patient was returned to PACU in stable condition.
[2020-03-26 10:15] LABS: Slide Review YES
[2020-03-26 11:54] VITALS: BP 131/60; PULSE 78; O2SAT 94
== END 2020-03-26 11:44 | disposition home or self-care (01) | DRG 914 ==
LOC: ED 20:30 → MED SURG 03-24 03:07
PROVIDERS: ADMIT Family Medicine; ATTEND Family Medicine
PROC: 0JCH0ZZ Extirpation of Matter from Left Lower Arm Subcutaneous Tissue and Fascia, Open Approach (ICD-10-PCS; principal; 2020-03-24)
DX: S55.90 Unspecified injury of unspecified blood vessel at forearm level (principal); L03.114 Cellulitis of left upper limb; W19.XXXA Unspecified fall, initial encounter; E11.9 Type 2 diabetes mellitus without complications; D64.9 Anemia, unspecified; Z79.899 Other long term (current) drug therapy
CPT/HCPCS: 36000; 36415; 71100; 73200; 80053; 82962; 83036; 83605; 85014; 85018; 85025; 85027; 85610; 87040; 87070; 90471; 90715; 96360; 96365; 96374; 96375; 99140; 99284; J0690; J1170; J1815; J2250; J2370; J2405; J2704; J3010; A9270-GY

== ENCOUNTER 2021-09-26 18:39 | Emergency (ER) | payer MEDICARE ==
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
[2021-09-26] MEDS ORDERED: NEOSYNEPHRINE 0.5% NASAL SPRAY/DROPS ONE (18:47)
[2021-09-26 18:58] VITALS: BP 162/78; PULSE 100; O2SAT 97
[2021-09-26] MEDS ORDERED: NEOSYNEPHRINE 0.5% NASAL SPRAY/DROPS NS ONE (18:59)
[2021-09-26 19:24] LABS: Absolute Neutrophil Ct (ANC) 6.47 (1.4-6.9); Basophil (Absolute #) 0.04 (0-0.4); Eosinophil % 0.1 % (0.00-5.0); Eosinophil (Absolute #) 0.01 (0-0.5); Hematocrit 38.5 % (42-50); Hemoglobin 13.1 gm/dl (12.5-18.0); Lymphocyte (Absolute #) 0.51 (1.0-4.6); Lymphocytes % 6.7 % (24.0-44.0); Mean Cell Volume 101.9 fl (78-100); Mean Corpuscular Hemoglobin 34.7 pg (26-32); Mean Platelet Volume 10.5 fl (7.5-11.0); Monocyte (Absolute #) 0.57 (0.0-1.3); Monocytes % 7.5 % (0.0-12.0); Neutrophil % 85.2 % (36.0-66.0); Platelet Count 94 K/mm3 (150-450); Red Blood Count 3.78 M/mm3 (4.1-5.6); Red Cell Distribution Width 14.3 % (11.5-14.0); White Blood Count 7.6 K/mm3 (4.0-10.5)
[2021-09-26 19:29] LABS: INR 1.71 (0.8-3.0); PROTIME 20.2 SECONDS (9.4-12.5)
[2021-09-26 19:33] LABS: ALBUMIN 4.1 g/dL (3.5-5.0); ALKALINE PHOSPHATASE 89 U/L (38-126); ANION GAP 21.4 MEQ/L (5-15); BLOOD UREA NITROGEN 22 mg/dL (9-20); CHLORIDE 94 mmol/L (98-107); Calcium 9.6 mg/dL (8.4-10.2); Carbon Dioxide 23 mmol/L (22-30); Creatinine 1 0.66 mg/dL (0.66-1.25); EST GLOMERULAR FILTRATION RATE > 60.0 ML/MIN; Glucose 141 mg/dL (74-106); Potassium 4.6 mmol/L (3.5-5.1); SGOT/AST 104 U/L (17-59); SGPT/ALT 36 U/L (0-50); SODIUM 134 mmol/L (137-145); Total Protein 7.6 g/dL (6.3-8.2)
[2021-09-26 23:09] LABS: Slide Review 1 YES
== END 2021-09-26 20:05 | disposition home or self-care (01) ==
LOC: ED 18:39
DX: R04.0 Epistaxis (principal); I10 Essential (primary) hypertension; E78.5 Hyperlipidemia, unspecified; E11.9 Type 2 diabetes mellitus without complications; Z79.84 Long term (current) use of oral hypoglycemic drugs; D53.9 Nutritional anemia, unspecified; Z79.899 Other long term (current) drug therapy; R74.01 Elevation of levels of liver transaminase levels
CPT/HCPCS: 36415; 80053; 85025; 85610; 99283; A9270-GY

== ENCOUNTER 2021-09-28 11:10 | Emergency (ER) | payer MEDICARE ==
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
[2021-09-28 11:50] VITALS: BP 124/73; PULSE 54; O2SAT 94
== END 2021-09-28 12:16 | disposition home or self-care (01) ==
LOC: ED 11:10
DX: R04.0 Epistaxis (principal); I10 Essential (primary) hypertension; E78.5 Hyperlipidemia, unspecified; E11.9 Type 2 diabetes mellitus without complications; Z79.84 Long term (current) use of oral hypoglycemic drugs; Z79.899 Other long term (current) drug therapy
CPT/HCPCS: 30905; 99283